=== PATIENT | female | born 1960 | race Two or more races ===

== ENCOUNTER 2022-12-02 12:12 | Emergency (ER) | payer OTHER ==
[~2022-12-02] VITALS: Ht 175.3 cm; Wt 81.8 kg
[2022-12-02 17:50] VITALS: BP 147/80
== END 2022-12-02 17:58 ==
LOC: ER 12:12 → EDUNIT# 12:12 → EDBD 12:12 → ER 17:58
DX: T17.320A Food in larynx causing asphyxiation, initial encounter (principal); R07.89 Other chest pain; X58.XXXA Exposure to other specified factors, initial encounter; Y93.89 Activity, other specified; Y92.89 Other specified places as the place of occurrence of the external cause; Y99.8 Other external cause status
CPT/HCPCS: 71046